=== PATIENT | female | born 1970 | race Caucasian/White ===

== ENCOUNTER 2016-11-26 13:47 | Emergency (ER) | payer BC, OTHER ==
[2016-11-26 13:54] VITALS: BP 115/66
--- NOTE | 2016-11-26 13:55 | EDM.PDOC ---
ED HPI GENERAL MEDICAL PROBLEM - General Chief Complaint: Head Injury Stated Complaint: [id number] FELL AT WORK Time Seen by Provider: 11/26/16 13:55 Source of Information: Reports: Patient, RN, RN Notes Reviewed History Limitations: Reports: No Limitations - History of Present Illness INITIAL COMMENTS - FREE TEXT/NARRATIVE: C/O head injury and Rt ankle injury sustain MAGNETIC TESTER at work when she stepped off the second step onto the floor and fell. Pt states that she forgot that she had stepped up onto the 2nd and missed the 1st step, falling on the floor. Denies LOC, N/V, or leak of clear or bloody fluid from the ears or nose. Onset: Today, Sudden Location: Reports: Head, Lower Extremity, Right Quality: Reports: Ache Severity: Moderate Improves with: Reports: Immobilization Worsens with: Reports: Other (wt bearing), Movement Associated Symptoms: Reports: No Other Symptoms Right Ankle Pain Score (Numeric/FACES): 9 - Related Data Allergies Allergy/AdvReac Type Severity Reaction Status Date / Time aspirin Allergy Airway Verified 11/26/16 14:02 Tightness Home Meds: Home Meds Ascorbic Acid 500 mg PO DAILY 02/07/15 [History] Calcium Carbonate/Vitamin D3 [Calcium 500 mg Chewable Tablet] 1 cap PO DAILY [History] Desmopressin (NonRefrigerated) [Ddavp 0.01% Nasal [place]] 1 applic NASBOTH BID [History] FLUoxetine [PROzac] 20 mg PO DAILY 02/07/15 [History] Past Medical History Other Cardiovascular History: DYSLIPIDEMIA Other Gastrointestinal History: COLORECTAL POLYPS Other Psychiatric History: PMDD; TOBACCO DEPENDENCE Endocrine/Metabolic History: Reports: Other (See Below) (pituitary dysfunction) - Past Surgical History Other GI Surgeries/Procedures: RECTAL POLYPECTOMY Social & Family History - Family History Family Medical History: Noncontributory - Tobacco Use Smoking Status *Q: Current Every Day Smoker Tobacco Use Within Last Twelve Months: Cigarettes Used Tobacco, but Quit: No - Living Situation & Occupation Living situation: Reports: with Family Occupation: Employed ED ROS GENERAL - Review of Systems Review Of Systems: ROS reveals no pertinent complaints other than HPI. ED EXAM, HEAD INJURY - Physical Exam Exam: See Below Exam Limited By: No Limitations General Appearance: Alert, WD/WN, No Apparent Distress Head: Normocephalic, Scalp Hematoma Nexus Criteria: No: Posterior, Midline Cervical Tenderness, Evidence of Intoxication, Altered Level of Consciousness, Focal Neurological Deficit, Painful Distraction Injuries Eyes: Bilateral Eye: Normal Inspection Ears: Normal External Exam, Normal Canal, Hearing Grossly Normal, Normal TMs. No: Canal Blood, Canal Discharge, TM Blood, TM Fluid Nose: Normal Inspection, Normal Mucousa, No Blood Throat/Mouth: Normal Inspection, Normal Lips, Normal Teeth, Normal Gums, Normal Oropharynx, Normal Voice, No Airway Compromise Neck: Non-Tender, Full Range of Motion, Normal Alignment, Normal Inspection Respiratory: No Respiratory Distress, Lungs Clear, Normal Breath Sounds, No Accessory Muscle Use, Chest Non-Tender Cardiovascular: Normal Peripheral Pulses, Regular Rate, Rhythm, No Edema, No Gallop, No JVD, No Murmur, No Rub Back Exam: Normal Inspection Extremities: Pain with Movement (Rt), Tenderness (with lateral swelling and bruising at Rt ankle) Neurologic: editorial manager II-XII nml As Tested, No Motor/Sensory Deficits, Alert, Normal Mood/Affect, Oriented x 3 Skin: Warm/Dry - Pete Coma Score Best Eye Response ([place]): (4) Open Spontaneously Best Verbal Response ([place]): (5) Oriented Best Motor Response ([place]): (6) Obeys Commands Pete Total: 15 Course - Vital Signs Last Recorded V/S: Last Vital Signs Temp 36.4 C 11/26/16 13:53 Pulse 101 H 11/26/16 13:53 Resp 20 11/26/16 13:53 BP 115/66 11/26/16 13:53 Pulse Ox 97 11/26/16 13:53 - Orders/Labs/Meds Orders: Active Orders 24 hr Category Date Time Status Ankle Min 3V Rt [CR] Urgent Exams 11/26/16 13:54 Ordered - Radiology Interpretation Free Text/Narrative:: Rt ankle Xray: no fracture, see Rad. report. Departure - Departure Time of Disposition: 14:24 Disposition: Home, Self-Care 01 Condition: Good Clinical Impression: Concussion with no loss of consciousness, Work related injury Right ankle sprain Qualifiers: Encounter type: initial encounter Involved ligament of ankle: unspecified ligament Qualified Code(s): S93.401A - Sprain of unspecified ligament of right ankle, initial encounter - Discharge Information Instructions: Concussion, Adult, [id number], Ankle Sprain, [id number] Forms: ED Department Discharge Additional Instructions: Use crutches and BRIGHT wrap to right ankle as needed for comfort. Rest, ice, and elevate ankle as needed to reduce pain and swelling. Concussion activity precautions for 3 weeks. Follow up in clinic in 7 to 10 days for recheck. - My Orders Last 24 Hours: My Active Orders 11/26/16 13:54 Ankle Min 3V Rt [CR] Urgent - Assessment/Plan Last 24 Hours: My Active Orders 11/26/16 13:54 Ankle Min 3V Rt [CR] Urgent
--- NOTE | 2016-11-26 15:44 | CR ---
Clinical history: 46-year-old female injured right ankle. Interpretation: Asymmetric pronounced soft tissue swelling over the lateral malleolus. No sign of underlying fracture or disruption of the tibiotalar mortise joint symmetry. Large heel spur at the insertion plantar aponeurosis base of the os calcis. No foreign bodies. CONCLUSION: Severe ankle sprain. No fractures. Large heel spur.
== END 2016-11-26 14:52 | disposition home or self-care (01) ==
LOC: DL.ED 13:47
DX: S06.0X0A Concussion without loss of consciousness, initial encounter (principal); S93.401A Sprain of unspecified ligament of right ankle, initial encounter; E78.5 Hyperlipidemia, unspecified; Z79.899 Other long term (current) drug therapy; F17.210 Nicotine dependence, cigarettes, uncomplicated; Z88.6 Allergy status to analgesic agent; W10.9XXA Fall (on) (from) unspecified stairs and steps, initial encounter; Y99.0 Civilian activity done for income or pay
CPT/HCPCS: 73610-RT; 99283

== ENCOUNTER 2020-08-02 05:17 | Day surgery (SDC) | payer OTHER ==
[2020-08-02] MEDS ORDERED: Midazolam 1 MG/ML 2 ML SDV IV ONE ×3 (05:18→06:32)
[2020-08-02] MEDS ORDERED: fentaNYL 100 MCG/2 ML SDV IV ONE ×3 (05:18→06:31)
[2020-08-02] MEDS ORDERED: Dextrose 5%-0.45% NaCl 1,000 ML IV SCH (05:30)
[2020-08-02] MEDS ORDERED: Midazolam 1 MG/ML 2 ML SDV ONE (06:11)
[2020-08-02] MEDS ORDERED: fentaNYL 100 MCG/2 ML SDV ONE (06:11)
--- NOTE | 2020-08-02 07:22 | OR ---
DATE: 08/02/2020 PROCEDURE: Esophagogastroduodenoscopy and multiple pinch biopsies. INSTRUMENT USED: [id number]-[id number] Olympus video panendoscope. PREMEDICATIONS: No oral or topical anesthesia used. Fentanyl 100 mcg intravenous, Versed 2 mg intravenous. The procedure was done under pulse oximetry, BP recording, and compliance monitor. INDICATION: The patient with persistent longstanding heartburn, unexplained, and not responsive to medical measures. Recent CT scan suggestive of gastric fundal mass. Esophagogastroduodenoscopy is performed for detection of any active erosive lesions, Cox esophagus and/or malignancy also under consideration, H pylori status to be determined, endoscopic hemostasis therapy if needed. DESCRIPTION OF PROCEDURE: The scope was passed with ease. Adequate visualization of the esophagus was made from proximal to distal areas. No upper esophageal lesions identified. No distal esophageal stricture. No uphill or downhill esophageal varices. No Bernadette-Hammond tear. Grade A erosive changes were noted by [place] criteria. No esophageal polyp or tumor mass identified. Z-line was seen at around 39 cm distal to the oral verge. No proximal gastric varices noted. Gastric fundus examination was a bit limited due to the presence of some adherent solid stool material that could not be aspirated clear. Gastric fundus examination by retroflexion showed no polypoid lesions. No gastric ulcer, malignant mass, or vascular ectasia identified. Duodenal bulb showed no ulcer. Visualized second part of the duodenum is unremarkable. Multiple pinch biopsies were taken from the gastric antrum and proximal body and sent for PyloriTek test for H pylori, and if negative in an hour, the tissues to be sent for histopathology. No bleeding was noted from any of the visualized areas at the completion of examination. Photographs were taken of the duodenal bulb, gastric antrum, fundus, and distal esophagus. IMPRESSION: Grade A gastroesophageal reflux disease. The patient tolerated the procedure well. [facility] /[id number]
[2020-08-02 10:05] VITALS: BP 114/70; PULSE 70
== END 2020-08-02 08:49 | disposition home or self-care (01) ==
LOC: DL.ENDO 05:17
PROVIDERS: ATTEND Internal Medicine Gastroenterology
DX: K21.9 Gastro-esophageal reflux disease without esophagitis (principal); E66.09 Other obesity due to excess calories; Z86.010 Personal history of colon polyps; Z88.8 Allergy status to other drugs, medicaments and biological substances; Z68.30 Body mass index [BMI] 30.0-30.9, adult
CPT/HCPCS: 87077; J2250; J3010; J7042

== ENCOUNTER 2020-08-12 06:54 | Day surgery (SDC) | payer OTHER ==
[~2020-08-12 06:54] MED LIST: Midazolam 1 MG/ML 2 ML SDV ONE; fentaNYL 100 MCG/2 ML SDV ONE
[2020-08-12] MEDS ORDERED: Midazolam 1 MG/ML 2 ML SDV IV ONE ×7 (06:55→08:29)
[2020-08-12] MEDS ORDERED: fentaNYL 100 MCG/2 ML SDV IV ONE ×5 (06:55→08:30)
[2020-08-12] MEDS ORDERED: Dextrose 5%-0.45% NaCl 1,000 ML IV SCH (07:00)
[2020-08-12 10:38] VITALS: BP 89/50; PULSE 63
--- NOTE | 2020-08-12 22:23 | OR ---
DATE: 08/12/2020 [id number] PROCEDURE DONE: Total colonoscopy. INSTRUMENT USED: [id number]-[id number] Olympus video colonoscope. PREMEDICATIONS: Fentanyl 150 mcg intravenous, Versed 4 mg intravenous. Nasal O2 cannula. The procedure was done under pulse oximetry, BP recording, and shelter monitor. INDICATION: The patient with abdominal pain, unexplained. Recent CT suggestive of colonic lesion. Colonoscopic examination is done for detection of any polypoid lesions and removal, endoscopic hemostasis therapy if needed. DESCRIPTION OF PROCEDURE: Initial rectal exam was unremarkable. Rigid anoscopy was normal. The colonoscope was passed with ease. Numerous scattered diverticula were noted in the distal left colon along with significant deformity. The scope was passed with ease up to the ileocecal area. Photographs were taken of the normal-appearing cecum, identified by landmarks of appendiceal orifice and double-bulged ileocecal folds. No bleeding was noted from any of the visualized areas at the commencement of the examination. The bowel preparation was found to be adequate, [place] scale 2 in all the regions, total score 6. No stricture. No vascular ectasia. No large isolated ulcerations seen. No evidence of diffuse inflammatory bowel disease in the form of friability, contact bleeding, or ulcerations. No polyp or tumor mass identified. Probing the proximal sides of folds and flexures using adequate distention and clearing up the stool material, withdrawal of the scope was made, cecum to rectum time over 6 minutes. No bleeding was noted from any of the visualized areas at the completion of examination. IMPRESSION: Diverticulosis. The patient tolerated the procedure well. [facility] /[id number]
== END 2020-08-17 10:47 | disposition home or self-care (01) ==
LOC: DL.ENDO 06:54
PROVIDERS: ATTEND Internal Medicine Gastroenterology
DX: K57.30 Diverticulosis of large intestine without perforation or abscess without bleeding (principal); E66.09 Other obesity due to excess calories; K21.9 Gastro-esophageal reflux disease without esophagitis; Z68.32 Body mass index [BMI] 32.0-32.9, adult; Z86.010 Personal history of colon polyps; Z98.890 Other specified postprocedural states
CPT/HCPCS: 45378; J2250; J3010; J7042